=== PATIENT | male | born 2000 | race Caucasian/White ===

== ENCOUNTER 2024-10-22 22:19 | Emergency (ER) | payer OTHER ==
[~2024-10-22] VITALS: Ht 188 cm; Wt 79.4 kg
[2024-10-22] MEDS ORDERED: BUPRENORPHINE HC2 MG (22:43)
[2024-10-22] MEDS ORDERED: REMERON15 MG PO (22:44)
[2024-10-22 23:54] LABS: BASOPHILS 1.4 % (0.2-1.2); EOSINOPHILS 0.3 % (0.8-7.0); LYMPHOCYTES 24.4 % (21.8-53.1); MCH 31.1 PG (25.7-32.2); MCHC 34.3 g/dL (32.3-36.5); MCV 90.6 fL (79.0-92.2); MONOCYTES 14.3 % (5.3-12.2); NEUTROPHILS 59.4 % (34.0-67.9); RBC 4.57 M/uL (4.63-6.08)
[2024-10-23 00:15] LABS: ALT (SGPT) 31.0 U/L (14-59); AST (SGOT) 26.0 U/L (15-37); GLOMERULAR FILTRATION RATE,EST 92.0 mL/min (>60); PROTEIN, TOTAL 8.0 g/dL (6.4-8.2); UREA NITROGEN 16.0 mg/dL (7-18)
[2024-10-23 00:20] LABS: LACTIC ACID, BLOOD 0.4 mmol/L (0.4-2.0)
[2024-10-23] MEDS ORDERED: AMOX TR-K CLV1 EAC1 PO (00:54)
[2024-10-23] MEDS ORDERED: AMOXICILLIN/CLAVULANATE K 875 MG HOME.PACK PO ONE (01:00)
[2024-10-23] MEDS ORDERED: ACETAMINOPHEN 325 MG TAB PO ONE (01:15)
[2024-10-23 01:20] VITALS: BP 116/76
== END 2024-10-23 01:23 | disposition home or self-care (01) ==
LOC: ED 22:19
PROVIDERS: Internal Medicine
DX: L03.213 Periorbital cellulitis (principal); Z88.6 Allergy status to analgesic agent; Z79.899 Other long term (current) drug therapy
CPT/HCPCS: 36415; 70487; 80053; 83605; 85025; 87040; 99284-25; A9270; Q9967